=== PATIENT | female | born 1995 | race Caucasian/White ===

== ENCOUNTER 2023-07-05 15:22 | Outpatient (OUT) | payer SELFPAY ==
--- NOTE | 2023-07-05 | XR_ITS ---
The [address] [address] Patient Name: ISRRAEL ESTRELLA MRN: [id number] date: 1995 Sex: F Assigned Patient Location: Current Patient Location: Accession/Order Number: [id number] Exam Date: 07/05/2023 15:30 Report Date: 07/06/2023 06:59 At the request of: CROW BERNAL Procedure: XR ankle JAY min 3V EXAMINATION: XR ankle JAY min 3V HISTORY: BILATERAL ANKLE PAIN COMPARISON: No relevant comparison available. FINDINGS: RIGHT FINDINGS: BONES: Normal. No significant arthropathy or acute abnormality. SOFT TISSUES: Negative. No visible soft tissue swelling. OTHER: Negative. LEFT FINDINGS: BONES: Normal. No significant arthropathy or acute abnormality. SOFT TISSUES: Negative. No visible soft tissue swelling. OTHER: Negative. XR/XR ankle JAY min 3V IMPRESSION: RIGHT CONCLUSION: No acute abnormality LEFT CONCLUSION: No acute abnormality Electronically authenticated by: LAMBERT SHIN Date: 07/06/2023 06:59
== END 2023-07-05 15:23 | disposition home or self-care (01) ==
LOC: EC 15:24
PROVIDERS: PCP Family Medicine; Visit Provider Podiatrist Foot & Ankle Surgery
DX: M25.571 Pain in right ankle and joints of right foot (principal); M25.572 Pain in left ankle and joints of left foot
CPT/HCPCS: 73610

== ENCOUNTER 2023-07-13 16:33 | Outpatient (RCR) | payer OTHER, SELFPAY | END 2023-07-21 13:44 | disposition home or self-care (01) | LOC: PT 16:33 | PROVIDERS: PCP Family Medicine; Visit Provider Podiatrist Foot & Ankle Surgery | DX: S93.421D Sprain of deltoid ligament of right ankle, subsequent encounter (principal); S93.402D Sprain of unspecified ligament of left ankle, subsequent encounter; S93.401D Sprain of unspecified ligament of right ankle, subsequent encounter | CPT/HCPCS: 97014; 97110; 97162 ==

== ENCOUNTER 2023-08-09 15:30 | Outpatient (OUT) | payer OTHER, SELFPAY ==
--- NOTE | 2023-08-09 15:37 | MR_ITS ---
The [address] [address] Patient Name: ISRRAEL ESTRELLA MRN: [id number] date: 1995 Sex: F Assigned Patient Location: MRI Current Patient Location: Accession/Order Number: [id number] Exam Date: 08/09/2023 16:00 Report Date: 08/10/2023 11:16 At the request of: CROW BERNAL Procedure: MR ankle RT wo con EXAM: MR ankle RT wo con REASON FOR EXAM: right ankle sprain, PTTD. TECHNIQUE: Multiplanar, multisequence imaging of the right ankle was performed without contrast COMPARISON: Radiographs 07/03/2023. FINDINGS: The Achilles tendon demonstrates normal thickness and signal without tendinosis or tear. The plantar fascia is normal in thickness without tear. Laterally, peroneal tendons demonstrate grossly normal thickness and signal without tendinosis or tear. The superficial peroneal retinaculum is intact. Thickening and intermediate signal the anterior talofibular and calcaneofibular ligaments is consistent with prior lateral ligamentous injury. No definite acute lateral ligamentous injury. Medially, thickening and intermediate signal of the posterior tibial tendon at the inframalleolar level with mild tenosynovitis. No tear. The flexor pollicis longus and flexor digitorum longus tendons are intact. The deep deltoid ligament is dysmorphic with intermediate signal likely reflecting prior deep deltoid ligament sprain. The visualized portions of the spring ligament are intact. Anteriorly, the anterior extensor tendons demonstrate normal thickness and signal without tendinosis or tear. Mild to moderate bone marrow edema is noted involving the posterior lateral tibial plafond as well as the medial aspect of the talus extending into the talar neck and talar head. A discrete fracture is not evident. The talar dome appears congruent. The subtalar joints intact. A moderate subtalar effusion is present. Degenerative cystic changes are noted at the angle of Gissane. Moderately edematous sinus tarsi. There is also focal bone marrow edema involving the distal margin of the cuboid bone as well as visualized portions of the distal fifth metatarsal. There is linear T2 hyperintense and T1 hypointense signal involving the proximal fifth metatarsal base (series 11, image 17; series 6, image 17). This could potentially reflect an age-indeterminate fracture or stress response. Midfoot is otherwise congruent. The plantar musculature demonstrates normal bulk and signal. Nonspecific subcutaneous edema about the lower extremity. MR/MR ankle RT wo con IMPRESSION: 1. Possible bone contusions involving the distal tibia and talus as well as possibly the distal margin of the cuboid bone. A discrete fracture identified. 2. Bone marrow edema involving the majority the visualized fifth metatarsal with linear signal more proximal, an age-indeterminate fracture or stress response not entirely excluded. 3. Sequela of prior medial and lateral ligamentous injury. Probable acute or subacute deep deltoid ligament intermediate grade sprain. 4. Posterior tibial tendinosis and tenosynovitis without tear. Electronically authenticated by: ANDREA SOLIS Date: 08/10/2023 11:16
== END 2023-08-09 15:31 | disposition home or self-care (01) ==
LOC: MRI 15:31
PROVIDERS: PCP Family Medicine; Visit Provider Podiatrist Foot & Ankle Surgery
DX: M76.821 Posterior tibial tendinitis, right leg (principal); S93.401A Sprain of unspecified ligament of right ankle, initial encounter
CPT/HCPCS: 73721

== ENCOUNTER 2024-07-09 05:38 | Emergency (ER) | payer OTHER, SELFPAY ==
[2024-07-09 05:42] VITALS: BP 148/88; PULSE 76; TEMP 36.8; O2SAT 98; BMI 34.9
--- OUTSIDE RECORDS SUMMARY | 2024-07-09 05:53 | XMS_ITS | CCD ---
Author Organization [facility] Team Providers Care Superintendent Meter Tests Name Role Phone DELTA, DR SALLY Han Attending Keila SORENSON, DR SALLY Han Consulting Keila DIXON, DR ERYN Kay Primary Care Unavailable DELTA, DR SALLY Han Admitting Keila SHIN, DR LAMBERT Molina Consulting Unavailable EMILY CHINO Attending Unavailable MATTI, EMILY Consulting Unavailable DESTINY, DR ERYN Kay Primary Care Unavailable EMILY CHINO Admitting ERYN Harry Primary Care Unavailable MYKE KLINE Attending Unavailable Myke Kline DO Primary Care Provider [phone] Allergies Allergy Classification Reported Allergen(s) Allergy Type Date of Onset Reaction(s) Facility (1 source) Sulfonamides (Antibiotic) Drug allergy (disorder) 4 [facility] (3 sources) diphenhydrAMINE Drug Allergy 4 [facility] (1 source) Sulfonamides (Antibiotic) Allergy to substance 4 [facility] (2 sources) Sulfonamides (Antibiotic) Propensity to adverse reactions 4 [facility] Healthcare Medications Current Medications Medication Drug Class(es) Dates Sig (Normalized) Sig (Original) acetaminophen 325 mg / HYDROcodone bitartrate 5 mg oral tablet (1 source) Opioid Agonist Start: 07-05-2023 take 1 tablet by mouth every eight hours Hydrocodone-Aceta minophen Active 1 TAB PO Every 8 hours July 05, 2023 12:00am sertraline 50 mg oral tablet (2 sources) Serotonin Reuptake Inhibitor Start: 12-28-2023 End: 06-25-2024 take 1 tablet by mouth once daily sertraline (Zoloft) 50 MG tablet Indications: LAMBERT (generalized anxiety disorder) (CMS/HCC) , Panic disorder (CMS/HCC) Take 1 tablet (50 mg) by mouth Daily 30 tablet 5 12/28/2023 06/25/2024 Active Problems Active Problems Problem Classification Problem Date Documented Da te Episodic/Chronic Anxiety disorders (4 sources) Generalized anxiety disorder; Translations: [Generalized anxiety disorder] 12-28-2023 Chronic Nonspecific chest pain (4 sources) Chest pain, unspecified; Translations: [Other chest pain] Onset: 04-17-2021 Episodic Other acquired deformities (2 sources) Deformity of metatarsal; Translations: [Unspecified acquired deformity of unspecified lower leg] Onset: 12-28-2023 12-28-2023 Episodic Sprains and strains (5 sources) Sprain of unspecified ligament of unspecified ankle, initial encounter; Translations: [Sprain of ankle] Onset: 07-03-2023 07-05-2023 Episodic Viral infection (2 sources) Verruca plantaris; Translations: [Plantar wart] Onset: 12-28-2023 12-28-2023 Episodic Past or Other Problems Problem Classification Problem Date Documented Date Episodic/Chronic Immunizations and screening for infectious disease (1 source) Encounter for screening for infections with a predominantly sexual mode of transmission; Translations: [ENC SCREEN INFECTIONS SEXL TRANSMS] Onset: 05-07-2020 Episodic Mood disorders (2 sources) Mood disorders Onset: 12-28-2023 12-28-2023 Other connective tissue disease (2 sources) Infrapatellar bursitis of left knee; Translations: [Other bursitis of knee, left knee] 12-28-2023 Episodic Other screening for suspected conditions (not mental disorders or infectious disease) (4 sources) Encounter for screening for malignant neoplasm of cervix; Translations: [ENC SCREENING MALIG NEOPLASM CERV] Onset: 05-02-2020 Episodic Results Test Name Value Interpretation Reference Range Facil it Basic Metabolic Profon 07-02 Anion gap [Moles/Vol] 9 mmol/L Normal 01-[address] [facility] Comment on above: Performed By: #### C FELICITA, BMP #### [facility] [address] [place] [address] Small Piece Cutter: Lambert Jang MD BUN/CRE Ratio 14 Normal 01-05 [facility] Comment on above: Performed By: #### C DP, BMP #### [facility] [address] [place] [address] Small Piece Cutter: Lambert Jang MD Calcium [Mass/Vol] 8.7 mg/dL Normal 8.6-10.[address] [facility] Comment on above: Performed By: #### C DP, BMP #### [facility] [address] [place], [place] [id number] Small Piece Cutter: Lambert Jang MD Chloride [Moles/Vol] 102 mmol/L Normal 98-[address] [facility] Comment on above: Performed By: #### C DP, BMP #### [facility] [address] [place], [place] [id number] Small Piece Cutter: Lambert Jang MD CO2 [Moles/Vol] 25 mmol/L Normal 20-31 [facility] Comment on above: Performed By: #### C DP, BMP #### [facility] [address] [place], [place] [id number] Small Piece Cutter: Lambert Jang MD Creatinine [Mass/Vol] 0.8 mg/dL Normal 0.5-0.[address] [facility] Comment on above: Performed By: #### C DP, BMP #### [facility] [address] [place], [place] [id number] Small Piece Cutter: Lambert Jang MD GFR/1.73 sq M.predicted among non-blacks MDRD (S/P/Bld) [Vol rate/Area] mL/min/{1.73_m2} Normal >[address] [facility] Comment on above: Result Comment: These results are not intended for use in patients <18 years of age. eGFR results are calculated without a race factor using the 2020 CKD-EPI equation. Careful clinical correlation is recommended, particularly when comparing to results calculated using previous equations. The CKD-EPI equation is less accurate in patients with extremes of muscle mass, extra-renal metabolism of creatine, excessive creatine ingestion, or following therapy that affects renal tubular secretion. Performed By: #### C DP, BMP #### [facility] [address] [place], [place] [address] Small Piece Cutter: Lambert Jang MD Glucose [Mass/Vol] 111 mg/dL High 70-[address] [facility] Comment on above: Performed By: #### C DP, BMP #### [facility] [address] [place], [place] [id number] Small Piece Cutter: Lambert Jang MD Potassium [Moles/Vol] 3.6 mmol/L Low 3.7-5.[address] [facility] Comment on above: Performed By: #### C DP, BMP #### [facility] [address] [place], [place] [id number] Small Piece Cutter: Lambert Jang MD Sodium [Moles/Vol] 136 mmol/L Normal 135-[address] [facility] Comment on above: Performed By: #### C DP, BMP #### [facility] [address] [place], [place] [id number] Small Piece Cutter: Lambert Jang MD Urea nitrogen [Mass/Vol] 11 mg/dL Normal 6-[address] [facility] Comment on above: Performed By: #### C DP, BMP #### [address] [place], [place] [id number] Small Piece Cutter: Lambert Jang MD CBC with Diffon 07-03-2023 Abs. Basophil 0.06 k/uL Normal 0.00-0.20 [facility] Comment on above: Performed By: #### C DP, BMP #### [facility] [address] [place], [place] [id number] Small Piece Cutter: Lambert Jang MD Abs.Imm.Granulocyte 0.06 k/uL Normal 0.00-0.[address] [facility] Comment on above: Performed By: #### C DP, BMP #### [facility] [address] [place], [place] [id number] Small Piece Cutter: Lambert Jang MD Abs.Neutrophil (Seg) 6.71 k/uL Normal 1.50-8.[address] [facility] Comment on above: Performed By: #### C DP, BMP #### [address] [place] [address] Small Piece Cutter: Lambert Jang MD Basophils/100 WBC (Bld) 1 % Normal 0-[address] [facility] Comment on above: Performed By: #### C DP, BMP #### [address] [place] [address] Small Piece Cutter: Lambert Jang MD Eosinophils (Bld) [#/Vol] 0.19 10*3/uL Normal 0.00-0.[address] [facility] Comment on above: Performed By: #### C DP, BMP #### [address] [place] [id number] Small Piece Cutter: Lambert Jang MD Eosinophils/100 WBC (Bld) 2 % Normal 1-[address] [facility] Comment on above: Performed By: #### C DP, BMP #### [address] [place] [address] Small Piece Cutter: Lambert Jang MD Erythrocyte distribution width (RBC) [Ratio] 13.5 % Normal 11.8-14.[address] [facility] Comment on above: Performed By: #### C DP, BMP #### [address] [place] [address] Small Piece Cutter: Lambert Jang MD Hematocrit (Bld) [Volume fraction] 35.8 % Low 36.3-47.[address] [facility] Comment on above: Performed By: #### C DP, BMP #### [address] [place] [address] Small Piece Cutter: Lambert Jang MD Hemoglobin (Bld) [Mass/Vol] 12.3 g/dL Normal 11.9-15.[address] [facility] Comment on above: Performed By: #### C DP, BMP #### [facility] [address] [place], [place] [id number] Small Piece Cutter: Lambert Jang MD Immature granulocytes/100 WBC (Bld) 1 % High [address] [facility] Comment on above: Performed By: #### C DP, BMP #### [facility] [address] [place], [facility]83 Small Piece Cutter: Lambert Jang MD Lymphocytes (Bld) [#/Vol] 2.12 10*3/uL Normal 1.10-3.[address] [facility] Comment on above: Performed By: #### C DP, BMP #### [address] [place], [facility]83 Small Piece Cutter: Lambert Jang MD Lymphocytes/100 WBC (Bld) 22 % Low 24-[address] [facility] Comment on above: Performed By: #### C DP, BMP #### [address] [place], [facility]83 Small Piece Cutter: Lambert Jang MD MCH (RBC) [Entitic mass] 29.4 pg Normal 25.2-33.[address] [facility] Comment on above: Performed By: #### C DP, BMP #### [address] [place], [facility]83 Small Piece Cutter: Lambert Jang MD MCHC (RBC) [Mass/Vol] 34.4 g/dL Normal 28.4-34.[address] [facility] Comment on above: Performed By: #### C DP, BMP #### [address] [place] [address] Small Piece Cutter: Lambert Jang MD MCV (RBC) [Entitic vol] 85.4 fL Normal 82.6-102.[address] [facility] Comment on above: Performed By: #### C DP, BMP #### [address] [place], [place] [id number] Small Piece Cutter: Lambert Jang MD Monocytes (Bld) [#/Vol] 0.35 10*3/uL Normal 0.10-1.[address] [facility] Comment on above: Performed By: #### C DP, BMP #### [facility] [address] [place], [place] [id number] Small Piece Cutter: Lambert Jang MD Monocytes/100 WBC (Bld) 4 % Normal 3-[address] [facility] Comment on above: Performed By: #### C DP, BMP #### [facility] [address] [place], [place] [address] Small Piece Cutter: Lambert Jang MD Neutrophil (Seg) 70 % High 36-65 [facility] Comment on above: Performed By: #### C DP, BMP #### [address] [place], [facility]83 Small Piece Cutter: Lambert Jang MD NRBC Automated 0.0 per 100 WBC Normal 0.[address] [facility] Comment on above: Performed By: #### C DP, BMP #### [address] [place], [facility] Small Piece Cutter: Lambert Jang MD Platelet mean volume (Bld) [Entitic vol] 9.5 fL Normal 8.1-13.[address] [facility] Comment on above: Performed By: #### C DP, BMP #### [address] [place], [facility]83 Small Piece Cutter: Lambert Jang MD Platelets (Bld) [#/Vol] 428 10*3/uL Normal 138-[address] [facility] Comment on above: Performed By: #### C DP, BMP #### [facility] [address] [place], [place] [id number] Small Piece Cutter: Lambert Jang MD RBC (Bld) [#/Vol] 4.19 10*6/uL Normal 3.95-5.[address] [facility] Comment on above: Performed By: #### C DP, BMP #### [facility] [address] [place] [address] Small Piece Cutter: Lambert Jang MD WBC (Bld) [#/Vol] 9.5 10*3/uL Normal 3.5-11.[address] [facility] Comment on above: Performed By: #### C DP, BMP #### [facility] [address] [place], [place] [id number] Small Piece Cutter: Lambert Jang MD XR ANKLE LEFT (MIN 3 VIEWS)o n 07-03-2023 XR ANKLE LEFT (MIN 3 VIEWS) EXAMINATION: THREE XRAY VIEWS OF THE RIGHT ANKLE; THREE XRAY VIEWS OF THE LEFT ANKLE 07/03/2023 3:25 pm COMPARISON: None. HISTORY: ORDERING SYSTEM PROVIDED HISTORY: fall/pain TECHNOLOGIST PROVIDED HISTORY: fall/pain; ORDERING SYSTEM PROVIDED HISTORY: fall pain TECHNOLOGIST PROVIDED HISTORY: fall pain FINDINGS: Left ankle: Ankle mortise is congruent. No fracture or dislocation identified. Prominence of the soft tissues in the leg likely related to patient body habitus. Right ankle: Ankle mortise is congruent. No fracture or dislocation identified. Soft tissue swelling of the lateral ankle. IMPRESSION: Soft tissue swelling of the lateral right ankle. No acute osseous abnormality identified. No acute osseous abnormality identified involving the left ankle. Interpreted by: Raf Elliott MD Signed by: Raf Elliott MD 07/03/23 Final result Normal [facility] XR ANKLE RIGHT (MIN 3 VIEWS) on 07-03-2023 XR ANKLE RIGHT (MIN 3 VIEWS) EXAMINATION: THREE XRAY VIEWS OF THE RIGHT ANKLE; THREE XRAY VIEWS OF THE LEFT ANKLE 07/03/2023 3:25 pm COMPARISON: None. HISTORY: ORDERING SYSTEM PROVIDED HISTORY: fall/pain TECHNOLOGIST PROVIDED HISTORY: fall/pain; ORDERING SYSTEM PROVIDED HISTORY: fall pain TECHNOLOGIST PROVIDED HISTORY: fall pain FINDINGS: Left ankle: Ankle mortise is congruent. No fracture or dislocation identified. Prominence of the soft tissues in the leg likely related to patient body habitus. Right ankle: Ankle mortise is congruent. No fracture or dislocation identified. Soft tissue swelling of the lateral ankle. IMPRESSION: Soft tissue swelling of the lateral right ankle. No acute osseous abnormality identified. No acute osseous abnormality identified involving the left ankle. Interpreted by: Raf Elliott MD Signed by: Raf Elliott MD 07/03/23 Final result Normal [facility] XR CHEST 1 Von 04-17-2021 XR CHEST 1 V EXAMINATION: XR CHES T 1 V HISTORY: CHEST PAIN, UNSPECIFIED COMPARISON: No relevant comparison available. TECHNIQUE: AP portable erect FINDINGS: LUNGS: No significant pulmonary parenchymal abnormalities. Low lung volumes VASCULATURE: No increased pulmonary vasculature. PLEURA: No pneumothorax, effusion, or pleural thickening. CARDIAC: No cardiomegaly or cardiac silhouette abnormality. MEDIASTINUM: No visible mass or adenopathy. BONES: No fracture or visible bone lesion. OTHER: Negative. IMPRESSION: No acute disease. Electronically authenticated by: LAMBERT SHIN Date: 2021-04-17 12:26 Normal [facility] PAP ACOG PANEL 3: 21 to 29on 05-06-2020 . . Normal [facility] Comment on above: Result Comment: Perf ormed at: WB Performed By: #### [id number] #### [facility] [address] [place], [place] [address] Wendy Macarena Age Gdln ACOG Testing Normal [facility] Comment on above: Performed By: #### [id number] #### [facility] [address] [place], [place] [address] Wendy Macarena Chlamydia, Nuc. Acid Amp Negative Normal Negative [facility] Comment on above: Result Comment: Perf ormed at: =G Performed By: #### [id number] #### [facility] [address] [place], [place] [address] Wendy Macarena DIAGNOSIS: Comment Normal [facility] Comment on above: Result Comment: NEGA TIVE FOR INTRAEPITHELIAL LESION OR MALIGNANCY. Performed at: WB Performed By: #### [id number] #### [facility] [address] [place], [place] [address] Wendy Macarena Gonococcus, Nuc. Acid Amp Negative Normal Negative [facility] Comment on above: Result Comment: Perf ormed at: =G Performed By: #### [id number] #### [facility] [address] [place] [address] Wendy Fiore Methodology: Comment Normal [facility] Comment on above: Result Comment: This liquid based ThinPrep(R) pap test was screened with the use of an image guided system. Performed at: WB Performed By: #### [id number] #### [facility] [address] [place] [address] Wendy Fiore Note: Comment Normal [facility] Comment on above: Result Comment: The Pap smear is a screening test designed to aid in the detection of premalignant and malignant conditions of the uterine cervix. It is not a diagnostic procedure and should not be used as the sole means of detecting cervical cancer. Both false-positive and false-negative reports do occur. . Performed at: WB Performed By: #### [id number] #### [facility] [address] [place] [address] Wendy Fiore Performed by: Comment Normal [facility] Comment on above: Result Comment: Megha Hoffman, School Traffic Supervisor (ASCP) Performed at: WB Performed By: #### [id number] #### [facility] [address] [place] [address] Wendy Fiore Reflex Criteria: Comment Normal [facility] Comment on above: Result Comment: The HPV DNA reflex criteria were not met with this specimen result therefore, no HPV testing was performed. . Performed at: WB Performed By: #### [id number] #### [facility] [address] [place] [address] Wendy Fiore Specimen adequacy: Comment Normal [facility] Comment on above: Result Comment: Sati sfactory for evaluation. Endocervical and/or squamous metaplastic cells (endocervical component) are present. Performed at: WB Performed By: #### [id number] #### [facility] [address] [place] [address] Wendy Fiore Vital Signs Date Time Vital Sign Value Performing Clinician Facility 12-28-2023 16:18-0400 Body height 163.8 cm Myke Kline DO Work Phone: [facility] 12-28-2023 16:18-0400 Body mass index (BMI) [Ratio] 52.9 kg/m2 Myke Dayton DO Work Phone: [facility] 12-28-2023 16:18-0400 Body temperature 97.3 [degF] Myke Dayton DO Work Phone: [facility] 12-28-2023 16:18-0400 Body weight 141.98 kg Myke Dayton DO Work Phone: [facility] 12-28-2023 16:18-0400 Diastolic blood pressure 70 mm[Hg] Myke Dayton DO Work Phone: [facility] 12-28-2023 16:18-0400 Heart rate 79 /min Myke Dayton DO Work Phone: [facility] 12-28-2023 16:18-0400 SaO2% (BldA) [Mass fraction] 98 % Myke Dayton DO Work Phone: [facility] 12-28-2023 16:18-0400 Systolic blood pressure 132 mm[Hg] Myke Dayton DO Work Phone: [facility] 07-05-2023 09:29-0400 Body height 165.1 cm [facility] 07-05-2023 09:29-0400 Body mass index (BMI) [Ratio] 53.2 kg/m2 [facility] 07-05-2023 09:29-0400 Body weight 145.14 kg [facility] 07-05-2023 09:29-0400 Diastolic blood pressure 78 mm[Hg] [facility] 07-05-2023 09:29-0400 Heart rate 90 /min [facility] 07-05-2023 09:29-0400 Systolic blood pressure 119 mm[Hg] [facility] Encounters Encounter Date Encounter Type Care Provider Facility Start: 12-28-2023 End: 12-28-2023 Office outpatient visit 25 minutes Myke L Dayton DO Work Phone: [facility] 230 Comment on above: LAMBERT (generalized anx iety disorder) (CMS/HCC) (Primary Dx); Panic disorder (CMS/HCC); Infrapatellar bursitis of left knee Start: 12-28-2023 End: 12-28-2023 ambulatory MYKE KLINE Not Available Start: 12-28-2023 End: 12-28-2023 Bamboo flowsheet Myke L Dayton DO Work Phone: [facility] Start: 12-28-2023 End: 12-28-2023 Bamboo flowsheet Myke L Dayton DO Work Phone: [facility] Start: 07-05-2023 End: 07-05-2023 ambulatory [facility] Work Phone: Start: 07-05-2023 End: 07-05-2023 Patient encounter procedure [facility] Work Phone: Start: 07-03-2023 End: 07-03-2023 Emergency department patient visit [facility] Start: 04-17-2021 End: 04-17-[address] SALLY SORENSON Facility:[facility] Start: 05-02-2020 End: 05-02-2020 ambulatory EMILY CHINO Facility:[facility] Plan of Treatment Date Care Activity Detail Author Start: 02-01-2024 End: 02-01-2024 Patient encounter procedure 02/01/2024 4:20 PM EDT Office Visit [facility] [address] [place] [address] Dayton, Myke L, DO [address] [place] [address] [facility] Start: 12-28-2023 End: 12-28-2023 Patient encounter procedure 12/28/2023 4:20 PM EDT Office Visit [facility] [address] [place] [address] Dayton, Myke L, DO [address] [place], [place] [id number] Arrived [facility] 230 Comment on above: Arrived Start: 12-18-2023 Influenza vaccination Influenz a Vaccine (#1) [facility] Start: 07-05-2023 Patient referral [facility] Work Phone: Patient referral [facility] Work Phone: Immunizations Immunization Date Immunization Notes Care Provider Fa cility 02-19-2016 influenza virus vacc ine, unspecified formulation [facility] 01-09-2015 influenza, seasonal, injectable, preservative free Myke Dayton DO Work Phone: [facility] 10-17-2013 meningococcal polysaccharide (groups A, C, Y and W-135) diphtheria toxoid conjugate vaccine (MCV4P) Myke Dayton DO Work Phone: [facility] 10-17-2013 tetanus toxoid, redu vijay diphtheria toxoid, and acellular pertussis vaccine, adsorbed Myke Dayton DO Work Phone: [facility] 10-21-2000 measles, mumps and rubella virus vaccine Myke Dayton DO Work Phone: [facility] 12-18-1999 diphtheria, tetanus toxoids and acellular pertussis vaccine, unspecified formulation Myke Dayton DO Work Phone: [facility] 12-18-1999 hepatitis B vaccine, pediatric or pediatric/adolescent dosage Myke Dayton DO Work Phone: [facility] 12-18-1999 poliovirus vaccine, inactivated Myke Dayton DO Work Phone: [facility] 10-03-1996 diphtheria, tetanus toxoids and acellular pertussis vaccine, unspecified formulation Myke Dayton DO Work Phone: [facility] 10-03-1996 haemophilus influenz ae type b vaccine, conjugate unspecified formulation Myke Dayton DO Work Phone: [facility] 10-03-1996 measles, mumps and rubella virus vaccine Myke Dayton DO Work Phone: [facility] 01-04-1996 DTP-Haemophilus influenzae type b conjugate vaccine Myke Dayton DO Work Phone: [facility] 01-04-1996 hepatitis B vaccine, pediatric or pediatric/adolescent dosage Myke Dayton DO Work Phone: [facility] 01-04-1996 trivalent poliovirus vaccine, live, oral Myke Dayton DO Work Phone: [facility] 1995 DTP-Haemophilus influenzae type b conjugate vaccine Myke Dayton DO Work Phone: [facility] 1995 trivalent poliovirus vaccine, live, oral Myke Dayton DO Work Phone: [facility] 1995 DTP-Haemophilus influenzae type b conjugate vaccine Myke Dayton DO Work Phone: [facility] 1995 hepatitis B vaccine, pediatric or pediatric/adolescent dosage Myke Dayton DO Work Phone: [facility] 1995 trivalent poliovirus vaccine, live, oral Myke Dayton DO Work Phone: [facility] 1995 hepatitis B vaccine, pediatric or pediatric/adolescent dosage Myke Dayton DO Work Phone: [facility] Payers Date Payer Category Payer Unknown [employer] [id number] 2023-Present [address] [address] [place] [address] [id number] 2022 Private Health Insurance [id number] 1995 Unknown [id number] 1995 Unknown [id number] 1995 Unknown [id number] 1995 Unknown [id number] 1959 Unknown [id number] Unknown [employer] [id number] Social History Date Type Detail Facility Start: 07-05-2023 End: 12-28-2023 Tobacco smoking status NHIS Never smoked tobacco (finding) [facility] Start: 1995 Sex Assigned At Female [facility] Start: 12-28-2023 Tobacco use and exposure Smokeless tobacco non-user [facility] Start: 12-28-2023 Alcoholic beverage intake Lifetime non-drinker (finding) [facility] Start: 12-28-2023 History of Social function [facility] Start: 12-28-2023 Tobacco use panel [facility] Start: 1995 Sex assigned at Not [facility] History of Present illness Narrative 12-28-2023 Myke Kline, DO - 12/28/2023 4:20 PM EDT Note Date & Type Note Facility 12-28-2023 History of Presen t illness Narrative Images from the original note were not included. SUBJECTIVE: HPI: Samara Cisneros is a 28 y.o. female who presents with chief complaint of Establish Care Pt states she is here to establish care. Pt would like yearly labs. Pt states she fell earlier this and injured both ankles. Pt states that both her ankles have been weak. Pt states she has had left knee swelling and it is cold. Pt would like to discuss her anxiety. Pt states she is constantly worried and is causing issues for work. Pt states she is also feeling angry as well. I have reviewed and reconciled the history and medication list with the patient today. Depression: At risk (12/28/2023) PHQ-2 PHQ-2 Score: 3 reports that she has never smoked. She has never used smokeless tobacco. She reports current drug use. Drug: Marijuana. She reports that she does not drink alcohol. OBJECTIVE: 01/30/2021 12:00 PM 02/16/2021 12:00 PM 03/02/2021 12:00 PM 05/05/2021 12:00 PM 12/28/2023 4:18 PM Vitals BMI 49.92 kg/m2 49.92 kg/m2 49.92 kg/m2 49.92 kg/m2 52.9 kg/m2 BSA (m2) 2.5 m2 2.5 m2 2.5 m2 2.5 m2 2.54 m2 Systolic 127 121 123 132 Diastolic 77 80 78 70 Heart Rate 79 SpO2 98 % Temp 97.3 F Height (in) 5' 5 5' 5 5' 5 5' 5 5' 4.5 Weight (lb) 300 300 300 300 313 Visit Report Report Physical Exam Constitutional: General: She is not in acute distress. Appearance: She is not ill-appearing. HENT: Head: Normocephalic. Cardiovascular: Rate and Rhythm: Normal rate and regular rhythm. Heart sounds: No murmur heard. Pulmonary: Effort: Pulmonary effort is normal. Breath sounds: Normal breath sounds. No wheezing. Abdominal: General: Abdomen is flat. There is no distension. Tenderness: There is no abdominal tenderness. Musculoskeletal: General: Tenderness (with effusion in infrapatellar bursa of L knee) present. No deformity. Normal range of motion. Cervical back: Normal range of motion. Skin: General: Skin is warm and dry. Neurological: General: No focal deficit present. Mental Status: She is alert and oriented to person, place, and time. Psychiatric: Mood and Affect: Mood normal. Behavior: Behavior normal. Thought Content: Thought content normal. Judgment: Judgment normal. No results found for this or any previous visit (from the past 672 hour(s)). ASSESSMENT AND PLAN: Assessment/Plan Diagnoses and all orders for this visit: LAMBERT (generalized anxiety disorder) ([facility]) - sertraline (Zoloft) 50 MG tablet; Take 1 tablet (50 mg) by mouth Daily - Ambulatory referral to Behavioral Health; Future Panic disorder (CMS/HCC) - sertraline (Zoloft) 50 MG tablet; Take 1 tablet (50 mg) by mouth Daily - Ambulatory referral to Behavioral Health; Future Infrapatellar bursitis of left knee - Ambulatory referral to Orthopaedic Surgery; Future Discussed treatment as above for anxiety. Discussed ER/return precautions as well as appropriate follow up interval here. Patient denies any SI/HI and feels comfortable with treatment plan. FMLA paperwork to be faxed here Chronic large bursitis causing more pain, will refer to ortho for consideration of further tx options Patient Active Problem List Diagnosis Deformity of metatarsal Severe ankle sprain Verruca plantaris History reviewed. No pertinent past medical history. documented in this encounter [facility] Evaluation note Note Date & Type Note Facility Evaluation note Diagnosis Onset Date Severe ankle sprain acute [facility] Work Phone: Evaluation note Note Date & Type Note Facility Evaluation note Diagnosis LAMBERT (generalized anxiety disorder) (CMS/HCC)- Primary Generalized anxiety disorder Panic disorder (CMS/HCC) Panic disorder without agoraphobia Infrapatellar bursitis of left knee documented in this encounter [facility] Hospital Discharge instructions Note Date & Type Note Facility Hospital Discharge instructions Ambulatory OrdersReferral to Podiatry Time Frame: 07/05/23, Location: None Selected [facility] Work Phone: Reason for referral (narrative) Consultation (Routine) - Pending Review Note Date & Type Note Facility Reason for referral (narrati ve) Specialty Diagnoses / Procedures Referred By Marco Antonio javier Referred To Contact Orthopaedic Surgery Diagnoses Infrapatellar bursitis of left knee Myke Kline DO [address] [place] [address] Jr. Antoni Barrett DO [address] [address] Referral ID Status Reason Start Date Expiration Date Visits Requested Visits Authorized [id number] Pending Review Specialty Services Required 12/28/2023 06/25/2024 1 1 * Consultation (Routine) - Pending Review Specialty Diagnoses / Procedures Referred By Marco Antonio javier Referred To Contact Behavioral Health Diagnoses LAMBERT (generalized anxiety disorder) ([facility]) Panic disorder (CMS/HCC) Procedures [place] OFFICE/OUTPATIENT NEW HIGH MDM 60 MINUTES Myke Kline DO [address] [place] [address] Yesenia Harding [facility] [address] [place] [address] Referral ID Status Reason Start Date Expiration Date Visits Requested Visits Authorized [id number] Pending Review Specialty Services Required 12/28/2023 06/25/2024 1 1 [facility] Summary Purpose Family History Relationship Condition Age at Onset Recorded Date/T grant Not Specified Malignant neoplasm Unknown father Diabetes mellitus Unknown Not Specified Hypertension Unknown Advance Directives Advance Directive Response Recorded Date/ Time Advance Directives No July 04 024 9:21am Chief Complaint and Reason for Visit Chief Complaint Follow Up Reason for Visit Severe ankle sprain Additional Source Comments INFORMATION SOURCE (unrecogn ized section and content) DATE CREATED AUTHOR 04/20/2021 [facility] DATE CREATED AUTHOR AUTHOR'S ORGANIZ ATION 07/05/2023 [facility] DATE CREATED AUTHOR AUTHOR'S ORGANIZ ATION 12/30/2023 [facility] EPIC Care Teams (unrecognized sec tion and content) Team Status: Active Member Role Status Dates Eryn Dixon MD Primary Care Provider Active Team Status: Inactive Member Role Status Dates Eryn Dixon MD Primary Care Provide r, Attending Provider Active Start: July 05, 2023 End: July 05, 2023 [employer] Relationship Specialty Start Date End Date Myke Kline DO [address] [place] [address] PCP - General Family Medicine 12/28/23 [employer] Relationship Specialty Start Date End Date Myke Kline DO [address] [place] [address] PCP - General Family Medicine 12/28/23 Goals (unrecognized section and content) Goals may be documented in a n alternate section Reason for Visit (unrecogniz ed section and content) Reason Comments Establish Care FOR RECORDS PERTAINING TO PATIENTS WHO ARE OR HAVE BEEN ENROLLED IN A CHEMICAL DEPENDENCY/SUBSTANCEABUSE PROGRAM, SOME INFORMATION MAY BE OMITTED. This clinical summary was aggregated from multiple sources. Caution should be exercised in using it in the provision of clinical care. This summary normalizes information from multiple sources, and as a consequence, information in this document may materially change the coding, format and clinical context of patient data. In addition, data may be omitted in some cases. CLINICAL DECISIONS SHOULD BE BASED ON THE PRIMARY CLINICAL RECORDS. [facility] [employer] [facility]. provides no warranty or guarantee of the accuracy or completeness of information in this document.
--- NOTE | 2024-07-09 05:54 | ED_ITS ---
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 Presents with right sided abdominal pain that started this am after she got up to go to the bathroom. Pain associated with vomiting. No fever. No pass abdominal surgeries. No chest pain or dyspnea. She is here with her female partner. They deny she is Related Data Previous Rx's ?Medication ?Instructions ?Recorded ondansetron 4 mg disintegrating 4 mg PO Q8H PRN nausea and 07/09/24 tablet vomiting 4 days #16 tabs polyethylene glycol 3350 17 17 g PO DAILY PRN constipation 07/09/24 gram/dose oral powder (Miralax) #238 grams Allergies Allergy/AdvReac Type Severity Reaction Status Date / Time No Known Drug Allergies Allergy Verified 07/09/24 05:48 Review of Systems 2 ROS0 Status of ROS 10 or more systems reviewed and unremark able except as noted in history and below PFSH PFSH Social History Little interest or pleasure in doing things: not at all Feeling down, depressed, or hopeless: not at all Exam Constitutional Vital Signs, click to edit/add: Last Vital Signs Temp 98.2 F 07/09/24 05:42 Pulse 74 07/09/24 08:40 Resp 18 07/09/24 08:40 BP 117/68 07/09/24 08:40 Pulse Ox 98 07/09/24 05:42 O2 Del Method Room Air 07/09/24 05:42 Common normals: no apparent distress, oriented x3, healthy appearing, alert and well nourished [facility] Common normals: normocephalic and head/scalp atraumatic Eye Common normals: PERRL, EOMs intact bilaterally and conjunctivae normal Respiratory Common normals: normal respiratory effort, no retractions, no use of accessory muscles and clear to auscultation bilaterally Cardio Common normals: regular rate, regular rhythm, S1 normal heart sound and S2 normal heart sound GI Common normals: Normal to inspection, nondistended, normoactive bowel sounds present and soft to palpation GI image (female): 2 1. tender. no guarding. abdomen is soft Extremity Common normals: normal to inspection and full ROM Neuro Common normals: oriented x3, moves all extremities and no focal motor deficits Psych Appearance: grossly normal Course Vital Signs Vital signs: Vital Signs Temperature 98.2 F 07/09/24 05:42 Pulse Rate 76 07/09/24 05:42 Respiratory Rate 18 07/09/24 05:42 Blood Pressure 148/88 H 07/09/24 05:42 Pulse Oximetry 98 07/09/24 05:42 Oxygen Delivery Method Room Air 07/09/24 05:42 Temperature 98.2 F 07/09/24 05:42 Pulse Rate 74 07/09/24 08:40 Respiratory Rate 18 07/09/24 08:40 Blood Pressure 117/68 07/09/24 08:40 Pulse Oximetry 98 07/09/24 05:42 Oxygen Delivery Method Room Air 07/09/24 05:42 MDM - Abdominal Pain MDM Narrative Medical decision making narrative: presents with right sided abdominal pain. Location of the pain presents multiple possible causes including gallbladder, renal colic and appendicitis. Labs and diagnostic studies ordered along with pain medication and anti emetic Lab Data Labs: Lab Results 07/09/24 07/09/24 Range/Units 06:00 07:55 WBC 7.3 (4.0-11.0) 10^3/uL RBC 4.46 (4.20-5.40) 10^6/uL Hgb 13.3 (12.0-16.0) g/dL Hct 38.6 (36.0-48.0) % MCV 86.5 (81.0-99.0) fL MCH 29.8 (26.7-34.0) pg MCHC 34.5 (29.9-35.2) g/dL RDW 13.4 (11.0-15.0) % Plt Count 402 (150-450) 10^3/uL MPV 10.0 (9.5-13.5) fL Neut % (Auto) 69.9 (43.0-75.0) % Lymph % (Auto) 22.4 (20.5-60.0) % Finney % (Auto) 4.7 (1.7-12.0) % Eos % (Auto) 1.9 (0.9-7.0) % Baso % (Auto) 0.8 (0.2-2.0) % Neut # (Auto) 5.1 (1.4-6.5) 10^3/uL Lymph # (Auto) 1.6 (1.2-3.8) 10^3/uL Finney # (Auto) 0.3 (0.3-0.8) 10^3/uL Eos # (Auto) 0.1 (0.0-0.7) 10^3/uL Baso # (Auto) 0.1 (0.0-0.1) 10^3/uL Abs Immat Gran (auto) 0.02 (0.00-0.03) 10^3/uL Imm/Tot Granulo (auto) 0.3 (0.0-0.5) % Sodium 140 (136-145) mmol/L Potassium 4.2 (3.5-5.1) mmol/L Chloride 104 (98-107) mmol/L Carbon Dioxide 27.7 (21.0-32.0) mmol/L Anion Gap 12.5 BUN 13.0 (7.0-18.0) mg/dL Creatinine 0.85 (0.55-1.02) mg/dL Est GFR ( Amer) >60 (>=60 mL/min/1.73m^2) Est GFR (Non-Af Amer) >60 (>=60 mL/min/1.73m^2) BUN/Creatinine Ratio 15.3 Glucose 98 (74-106) mg/dL Calcium 8.8 (8.5-10.1) mg/dL Total Bilirubin 1.1 H (0.2-1.0) mg/dL AST 13 L (15-37) U/L ALT 18 (14-59) U/L Alkaline Phosphatase 90 (46-116) U/L Total Protein 7.6 (6.4-8.2) g/dL Albumin 3.6 (3.4-5.0) g/dL Globulin 4.0 g/dL Albumin/Globulin Ratio 0.9 Lipase 21.0 (16.0-77.0) U/L Urine Color Lt. yellow (YELLOW) Urine Clarity Clear (CLEAR) Urine pH 5.5 (5.0-9.0) Ur Specific [place] 1.010 (1.005-1.025) Urine Protein Negative (NEG/TRACE) mg/dL Urine Glucose (UA) Negative (NEGATIVE) mg/dL Urine Ketones Negative (NEGATIVE) mg/dL Urine Occult Blood Negative (NEGATIVE) Urine Nitrite Negative (NEGATIVE) Urine Bilirubin Negative (NEGATIVE) Urine Urobilinogen 0.2 (0.2-1.0) EU/dL Ur Leukocyte Esterase Negative (NEGATIVE) Urine RBC 0-2 (0-2) #/HPF Urine WBC 0-2 A (NONE SEEN) #/HPF Ur Squamous Epith Cells Few A (NONE/RARE) #/LPF Urine Crystals None seen (None Seen) #/HPF Urine Bacteria Trace A (NONE SEEN) #/HPF Urine Casts None seen (NONE SEEN) #/LPF Urine Mucus None seen (NONE SEEN) Ur Culture Indicated? No Urine HCG, Qual Negative (NEGATIVE) Discharge Plan Discharge Chief Complaint: Abdominal Pain Clinical Impression: Abdominal pain, Constipation Patient Disposition: Home, Self-Care Time of Disposition Decision: 08:30 Condition: Good Mode of Transportation: Private Vehicle Prescriptions / Home Meds: New polyethylene glycol 3350 [Miralax] 17 gram/dose powder 17 g PO DAILY PRN (Reason: constipation) Qty: 238 0RF ondansetron 4 mg tablet,disintegrating 4 mg PO Q8H PRN (Reason: nausea and vomiting) 4 Days Qty: 16 0RF Print Language: Senegalese Instructions: Constipation (DC), Abdominal Pain (ED) Additional Instructions: Call the office of your primary care doctor to arrange for follow-up within the above-stated timeframe. Your ED visit was focused on your acute issue and does not replace primary care. You should review your labs, imaging, and diagnoses from this ED visit with your primary care physician. There may be non-emergent/ incidental findings that need further evaluation. You should review your vital signs including blood pressure with your PCP. If you were prescribed medications you should discuss possible side-effects and drug interactions with your pharmacist. Call 911 or go to the nearest Emergency Department if you develop any new or worsening symptoms. Seek immediate medical attention if you develop: worsening abdominal pain, new or worsening nausea, new or worsening vomiting, new or worsening diarrhea, chest pain, shortness of breath, pain with urination, problems urinating, fever, chills, weakness, or any new or worsening symptoms. Referrals: Eryn Caal MD [Primary Care Provider] - 1 week Discharge Date/Time: 07/09/24 08:41 Documented by User: Isar Kelly MD 07/09/24 08:38 HPI - Abdominal Pain General Chief Complaint: Abdominal Pain Stated Complaint: R SIDE ABDOMINAL PAIN Time Seen by Provider: 07/09/24 05:46 Related Data Previous Rx's ?Medication ?Instructions ?Recorded ondansetron 4 mg disintegrating 4 mg PO Q8H PRN nausea and 07/09/24 tablet vomiting 4 days #16 tabs polyethylene glycol 3350 17 17 g PO DAILY PRN constipation 07/09/24 gram/dose oral powder (Miralax) #238 grams Allergies Allergy/AdvReac Type Severity Reaction Status Date / Time No Known Drug Allergies Allergy Verified 07/09/24 05:48 PFSH PFSH Social History Little interest or pleasure in doing things: not at all Feeling down, depressed, or hopeless: not at all Exam Constitutional Vital Signs, click to edit/add: Last Vital Signs Temp 98.2 F 07/09/24 05:42 Pulse 74 07/09/24 08:40 Resp 18 07/09/24 08:40 BP 117/68 07/09/24 08:40 Pulse Ox 98 07/09/24 05:42 O2 Del Method Room Air 07/09/24 05:42 GI GI image (female): 2 1. tender. no guarding. abdomen is soft Course Vital Signs Vital signs: Vital Signs Temperature 98.2 F 07/09/24 05:42 Pulse Rate 76 07/09/24 05:42 Respiratory Rate 18 07/09/24 05:42 Blood Pressure 148/88 H 07/09/24 05:42 Pulse Oximetry 98 07/09/24 05:42 Oxygen Delivery Method Room Air 07/09/24 05:42 Temperature 98.2 F 07/09/24 05:42 Pulse Rate 74 07/09/24 08:40 Respiratory Rate 18 07/09/24 08:40 Blood Pressure 117/68 07/09/24 08:40 Pulse Oximetry 98 07/09/24 05:42 Oxygen Delivery Method Room Air 07/09/24 05:42 MDM - Abdominal Pain MDM Narrative Medical decision making narrative: presents with right sided abdominal pain. Location of the pain presents multiple possible causes including gallbladder, renal colic and appendicitis. Labs and diagnostic studies ordered along with pain medication and anti emetic. Signout Note: Lab work reviewed and unremarkable. Urinalysis without evidence of infection. Normal biliary labs. CT scan without any acute findings. Patient's abdomen remained benign. Vitals remained stable. Discussed the reassuring workup with the patient. On my review of the CT imaging there is a significant stool burden on the right side which may be the source of her discomfort. Will start MiraLAX daily for the next 3 days. Zofran as needed for nausea. We discussed diagnostic uncertainty and dynamic nature of illness, return precautions were discussed. All questions were answered. The patient was discharged home. Isra Kelly DO, [facility] Lab Data Labs: Lab Results 07/09/24 07/09/24 Range/Units 06:00 07:55 WBC 7.3 (4.0-11.0) 10^3/uL RBC 4.46 (4.20-5.40) 10^6/uL Hgb 13.3 (12.0-16.0) g/dL Hct 38.6 (36.0-48.0) % MCV 86.5 (81.0-99.0) fL MCH 29.8 (26.7-34.0) pg MCHC 34.5 (29.9-35.2) g/dL RDW 13.4 (11.0-15.0) % Plt Count 402 (150-450) 10^3/uL MPV 10.0 (9.5-13.5) fL Neut % (Auto) 69.9 (43.0-75.0) % Lymph % (Auto) 22.4 (20.5-60.0) % Finney % (Auto) 4.7 (1.7-12.0) % Eos % (Auto) 1.9 (0.9-7.0) % Baso % (Auto) 0.8 (0.2-2.0) % Neut # (Auto) 5.1 (1.4-6.5) 10^3/uL Lymph # (Auto) 1.6 (1.2-3.8) 10^3/uL [place]ney # (Auto) 0.3 (0.3-0.8) 10^3/uL Eos # (Auto) 0.1 (0.0-0.7) 10^3/uL Baso # (Auto) 0.1 (0.0-0.1) 10^3/uL Abs Immat Gran (auto) 0.02 (0.00-0.03) 10^3/uL Imm/Tot Granulo (auto) 0.3 (0.0-0.5) % Sodium 140 (136-145) mmol/L Potassium 4.2 (3.5-5.1) mmol/L Chloride 104 (98-107) mmol/L Carbon Dioxide 27.7 (21.0-32.0) mmol/L Anion Gap 12.5 BUN 13.0 (7.0-18.0) mg/dL Creatinine 0.85 (0.55-1.02) mg/dL Est GFR ( Amer) >60 (>=60 mL/min/1.73m^2) Est GFR (Non-Af Amer) >60 (>=60 mL/min/1.73m^2) BUN/Creatinine Ratio 15.3 Glucose 98 (74-106) mg/dL Calcium 8.8 (8.5-10.1) mg/dL Total Bilirubin 1.1 H (0.2-1.0) mg/dL AST 13 L (15-37) U/L ALT 18 (14-59) U/L Alkaline Phosphatase 90 (46-116) U/L Total Protein 7.6 (6.4-8.2) g/dL Albumin 3.6 (3.4-5.0) g/dL Globulin 4.0 g/dL Albumin/Globulin Ratio 0.9 Lipase 21.0 (16.0-77.0) U/L Urine Color Lt. yellow (YELLOW) Urine Clarity Clear (CLEAR) Urine pH 5.5 (5.0-9.0) Ur Specific [place] 1.010 (1.005-1.025) Urine Protein Negative (NEG/TRACE) mg/dL Urine Glucose (UA) Negative (NEGATIVE) mg/dL Urine Ketones Negative (NEGATIVE) mg/dL Urine Occult Blood Negative (NEGATIVE) Urine Nitrite Negative (NEGATIVE) Urine Bilirubin Negative (NEGATIVE) Urine Urobilinogen 0.2 (0.2-1.0) EU/dL Ur Leukocyte Esterase Negative (NEGATIVE) Urine RBC 0-2 (0-2) #/HPF Urine WBC 0-2 A (NONE SEEN) #/HPF Ur Squamous Epith Cells Few A (NONE/RARE) #/LPF Urine Crystals None seen (None Seen) #/HPF Urine Bacteria Trace A (NONE SEEN) #/HPF Urine Casts None seen (NONE SEEN) #/LPF Urine Mucus None seen (NONE SEEN) Ur Culture Indicated? No Urine HCG, Qual Negative (NEGATIVE) Discharge Plan Discharge Chief Complaint: Abdominal Pain Clinical Impression: Abdominal pain, Constipation Patient Disposition: Home, Self-Care Time of Disposition Decision: 08:30 Condition: Good Mode of Transportation: Private Vehicle Prescriptions / Home Meds: New polyethylene glycol 3350 [Miralax] 17 gram/dose powder 17 g PO DAILY PRN (Reason: constipation) Qty: 238 0RF ondansetron 4 mg tablet,disintegrating 4 mg PO Q8H PRN (Reason: nausea and vomiting) 4 Days Qty: 16 0RF Print Language: Senegalese Instructions: Constipation (DC), Abdominal Pain (ED) Additional Instructions: Call the office of your primary care doctor to arrange for follow-up within the above-stated timeframe. Your ED visit was focused on your acute issue and does not replace primary care. You should review your labs, imaging, and diagnoses from this ED visit with your primary care physician. There may be non-emergent/ incidental findings that need further evaluation. You should review your vital signs including blood pressure with your PCP. If you were prescribed medications you should discuss possible side-effects and drug interactions with your pharmacist. Call 911 or go to the nearest Emergency Department if you develop any new or worsening symptoms. Seek immediate medical attention if you develop: worsening abdominal pain, new or worsening nausea, new or worsening vomiting, new or worsening diarrhea, chest pain, shortness of breath, pain with urination, problems urinating, fever, chills, weakness, or any new or worsening symptoms. Referrals: Eryn Caal MD [Primary Care Provider] - 1 week Discharge Date/Time: 07/09/24 08:41
[2024-07-09 06:05] LABS: Basophils Absolute Auto 0.1 10^3/uL (0.0-0.1); Basophils Percent Auto 0.8 % (0.2-2.0); Eosinophils Absolute Auto 0.1 10^3/uL (0.0-0.7); Eosinophils Percent Auto 1.9 % (0.9-7.0); Hematocrit 38.6 % (36.0-48.0); Hemoglobin 13.3 g/dL (12.0-16.0); Immature Granulocytes Abs Auto 0.02 10^3/uL (0.00-0.03); Immature Granulocytes Pct Auto 0.3 % (0.0-0.5); Lymphocytes Absolute Auto 1.6 10^3/uL (1.2-3.8); Lymphocytes Percent Auto 22.4 % (20.5-60.0); Mean Corpuscular HGB Conc 34.5 g/dL (29.9-35.2); Mean Corpuscular Hemoglobin 29.8 pg (26.7-34.0); Mean Corpuscular Volume 86.5 fL (81.0-99.0); Monocytes Absolute Auto 0.3 10^3/uL (0.3-0.8); Monocytes Percent Auto 4.7 % (1.7-12.0); Neutrophils Absolute Auto 5.1 10^3/uL (1.4-6.5); Neutrophils Percent Auto 69.9 % (43.0-75.0); Platelet Count 402 10^3/uL (150-450); Red Blood Count 4.46 10^6/uL (4.20-5.40); Red Cell Distribution Width 13.4 % (11.0-15.0); White Blood Count 7.3 10^3/uL (4.0-11.0)
[2024-07-09] MEDS: 0.9 % SODIUM CHLORIDE 1,000 ML 999 ML IV (06:23)
[2024-07-09] MEDS: FENTANYL CITRATE/PF 100 MCG/2 ML VIAL 50 MCG IV (06:24)
[2024-07-09] MEDS: ONDANSETRON PF 4 MG/2 ML VIAL IV (06:25)
[2024-07-09 06:28] LABS: Alanine Aminotransferase 18 U/L (14-59); Albumin Globulin Ratio 0.9; Albumin Level 3.6 g/dL (3.4-5.0); Alkaline Phosphatase 90 U/L (46-116); Anion Gap 12.5; Aspartate Amino Transferase 13 U/L (15-37); BUN Creatinine Ratio 15.3; Bilirubin Total 1.1 mg/dL (0.2-1.0); Calcium 8.8 mg/dL (8.5-10.1); Carbon Dioxide 27.7 mmol/L (21.0-32.0); Chloride 104 mmol/L (98-107); Estimated GFR (African America >60 (>=60 mL/min/1.73m^2); Estimated GFR (Non-African Ame >60 (>=60 mL/min/1.73m^2); Glucose 98 mg/dL (74-106); Potassium 4.2 mmol/L (3.5-5.1); Sodium 140 mmol/L (136-145); Total Protein 7.6 g/dL (6.4-8.2)
[2024-07-09 08:03] LABS: Bilirubin Urine NEGATIVE (NEGATIVE); Blood Urine NEGATIVE (NEGATIVE); Clarity Urine CLEAR (CLEAR); Color Urine LT. YELLOW (YELLOW); Glucose Urine UA NEGATIVE (NEGATIVE); Ketones Urine NEGATIVE (NEGATIVE); Leukocyte Esterase Urine NEGATIVE (NEGATIVE); Nitrite Urine NEGATIVE (NEGATIVE); Protein Urine NEGATIVE (NEG/TRACE); Urobilinogen Urine 0.2 EU/dL (0.2-1.0); pH Urine 5.5 (5.0-9.0)
[2024-07-09 08:04] LABS: HCG Qualitative Urine* NEGATIVE (NEGATIVE); Internal Control Within Normal Limits
[2024-07-09 08:08] LABS: Bacteria Urine TRACE #/HPF (NONE SEEN); Cast Seen? NONE SEEN #/LPF (NONE SEEN); Crystals Seen? None Seen #/HPF (None Seen); Mucus Urine NONE SEEN (NONE SEEN); RBC Urine 0-2 #/HPF (0-2); Squamous Epithelial Cell Urine FEW #/LPF (NONE/RARE); Urine Culture Indicated NO; WBC Urine 0-2 #/HPF (NONE SEEN)
[2024-07-09 08:40] VITALS: BP 117/68; PULSE 74
== END 2024-07-09 08:41 | disposition home or self-care (01) ==
PROVIDERS: Internal Medicine; Emergency Provider Student in an Organized Health Care Education/Training Program; PCP Family Medicine
DX: R10.9 Unspecified abdominal pain (principal); K59.00 Constipation, unspecified; H91.90 Unspecified hearing loss, unspecified ear
CPT/HCPCS: 36415; 74176; 80053; 81001; 83690; 84703; 85025; 96361; 96374; 96375; 99284; J2405; J3010